=== PATIENT | female | born 1960 | race Caucasian/White ===

== ENCOUNTER 2017-03-16 13:27 | Inpatient (IN) | payer OTHER ==
[~2017-03-16] VITALS: Ht 160 cm; Wt 81.6 kg
[2017-03-16 13:45] VITALS: BP_SYST 105
[2017-03-16] MEDS ORDERED: ONDANSETRON 4 MG ODT TAB PO ONE (15:30)
[2017-03-16 15:38] LABS: BASOPHILS # (AUTO) 0.1 K/uL (0.0-0.2); BASOPHILS % (AUTO) 0.6 % (0.0-2.0); HEMOGLOBIN 13.1 g/dL (12.0-16.0); LYMPHOCYTES # (AUTO) 0.4 K/uL (1.0-5.5); LYMPHOCYTES % (AUTO) 2.4 % (20.5-51.5); MEAN CORPUSCULAR HEMOGLOBIN 30 pg (27-31); MEAN CORPUSCULAR HGB CONC 33 % (32-36); MEAN CORPUSCULAR VOLUME 90 fL (79.0-98.0); MONOCYTES # (AUTO) 0.2 K/uL (0.0-1.0); MONOCYTES % (AUTO) 1.1 % (1.7-9.3); NEUTROPHILS # (AUTO) 14.2 K/uL (1.8-7.7); NEUTROPHILS % (AUTO) 95.9 % (40.0-70.0); PLATELET COUNT (AUTO) 366 K/uL (130-430); RED BLOOD CELL COUNT(AUTO) 4.44 MIL/uL (4.2-6.2); RED CELL DISTRIBUTION WIDTH 13.2 % (9.0-15.0); WHITE BLOOD COUNT (AUTO) 14.9 K/uL (4.8-10.8)
[2017-03-16 15:55] LABS: BILIRUBIN,URINE NEGATIVE (NEGATIVE); BLOOD, URINE NEGATIVE (NEGATIVE); CLARITY/URINE HAZY (CLEAR); COLOR,URINE YELLOW (YELLOW); GLUCOSE,URINE NEGATIVE (NEGATIVE); KETONES,URINE TRACE (NEGATIVE); LEUKOCYTE ESTERASE ,URINE TRACE (NEGATIVE); NITRITE, URINE NEGATIVE (NEGATIVE); PH,URINE 6.5 (5.0-8.0); PROTEIN URINE TRACE (NEGATIVE); UROBILINOGEN,URINE 0.2 (0.2-1.0)
[2017-03-16 15:59] LABS: CALCIUM 8.9 mg/dL (8.4-11.0); CREATININE 1.38 mg/dL (0.55-1.30)
[2017-03-16 16:04] LABS: ALBUMIN 3.9 g/dL (3.4-4.8); TOTAL BILIRUBIN 0.6 mg/dL (0.0-1.0); TOTAL PROTEIN, SERUM 8.6 g/dL (6.4-8.3)
[2017-03-16 16:09] LABS: POTASSIUM 2.4 mmol/L (3.5-5.1)
[2017-03-16] MEDS ORDERED: NACL 0.9% 1,000 ML IV ONE (16:15)
[2017-03-16] MEDS ORDERED: KCL 40 mEq in 100 mL (PREMIX) 100 ML IV ONE (16:15)
[2017-03-16] MEDS ORDERED: POTASSIUM CHLORIDE 20 MEQ TAB.PRT.SR PO ONE (16:15)
[2017-03-16 16:26] LABS: BACTERIA,URINE MODERATE /HPF (None Seen); RBC,URINE 0-3 /HPF (0-3)
[2017-03-16 16:27] LABS: MUCUS,URINE None Seen /LPF (None Seen)
[2017-03-16] MEDS ORDERED: MORPHINE SULFATE 10 MG/ML VIAL IVP ONE (16:30)
[2017-03-16] MEDS ORDERED: KCL 20 mEq in 100 mL (PREMIX) 100 ML IV ONE (16:30)
[2017-03-16] MEDS ORDERED: BUTA1CAP43 PO (17:45)
[2017-03-16] MEDS ORDERED: TOPI50TA PO (17:45)
[2017-03-16] MEDS ORDERED: LEVO175T2 PO (17:45)
[2017-03-16] MEDS ORDERED: TEMA15CA51 PO (17:45)
[2017-03-16] MEDS ORDERED: VENL37.55 PO (17:45)
[2017-03-16] MEDS ORDERED: ASA81 PO (17:45)
[2017-03-16] MEDS ORDERED: HYDR-2489 PO (17:45)
[2017-03-16] MEDS ORDERED: LISI40TA4 PO (17:45)
[2017-03-16] MEDS ORDERED: LORA-259 PO (17:45)
[2017-03-16 18:28] VITALS: BP_SYST 99
[2017-03-16 19:00] VITALS: BP_SYST 115
[2017-03-16] MEDS: D5NS 1,000 ML IV SCH (19:00)
[2017-03-16] MEDS ORDERED: ONDANSETRON HCL 4 MG/2 ML VIAL IVP PRN (19:00)
[2017-03-16] MEDS ORDERED: MORPHINE 4 MG/ML INJ. SYRINGE IVP PRN (19:00)
[2017-03-16] MEDS ORDERED: ACETAMINOPHEN 325 MG TABLET PO PRN (19:00)
[2017-03-16 20:00] VITALS: BP_SYST 115
[2017-03-16] MEDS ORDERED: PIPERACILLIN/TAZO 3.375/DEX-IS 50 ML IV ONE (20:00)
[2017-03-16] MEDS: TEMAZEPAM 15 MG CAPSULE PO SCH (21:53)
[2017-03-16] MEDS: MORPHINE 2 MG/ML INJ. SYRINGE IVP PRN (22:06)
[2017-03-16 23:45] VITALS: BP_SYST 92
[2017-03-17] MEDS: PIPERACILLIN/TAZO 3.375/DEX-IS 50 ML IV SCH ×4 (02:24→21:32)
[2017-03-17] MEDS: D5NS 1,000 ML IV SCH ×2 (02:25→18:13)
[2017-03-17 04:00] VITALS: BP_SYST 88
[2017-03-17] MEDS: LEVOTHYROXINE SODIUM 0.125 MG TABLET PO SCH (06:17)
[2017-03-17 08:25] VITALS: BP_SYST 88
[2017-03-17] MEDS: TOPIRAMATE 100 MG TABLET(Topamax) PO SCH (09:03)
[2017-03-17] MEDS: MORPHINE 2 MG/ML INJ. SYRINGE IVP PRN (09:07)
[2017-03-17 09:10] VITALS: BP_SYST 94
[2017-03-17] MEDS: LORazepam 1 MG TABLET PO SCH (10:26)
[2017-03-17 11:10] LABS: BASOPHILS % (AUTO) 0.3 % (0.0-2.0); EOSINOPHILS # (AUTO) 0.1 K/uL (0.0-0.4); EOSINOPHILS % (AUTO) 1.2 % (0.0-4.0); HEMATOCRIT 31.1 % (36-48); HEMOGLOBIN 10.3 g/dL (12.0-16.0); LYMPHOCYTES # (AUTO) 0.7 K/uL (1.0-5.5); LYMPHOCYTES % (AUTO) 12.1 % (20.5-51.5); MEAN CORPUSCULAR HEMOGLOBIN 30 pg (27-31); MEAN CORPUSCULAR HGB CONC 33 % (32-36); MEAN CORPUSCULAR VOLUME 90 fL (79.0-98.0); MONOCYTES # (AUTO) 0.4 K/uL (0.0-1.0); MONOCYTES % (AUTO) 6.8 % (1.7-9.3); NEUTROPHILS # (AUTO) 4.5 K/uL (1.8-7.7); NEUTROPHILS % (AUTO) 79.6 % (40.0-70.0); PLATELET COUNT (AUTO) 241 K/uL (130-430); RED BLOOD CELL COUNT(AUTO) 3.46 MIL/uL (4.2-6.2); RED CELL DISTRIBUTION WIDTH 12.8 % (9.0-15.0); WHITE BLOOD COUNT (AUTO) 5.7 K/uL (4.8-10.8)
[2017-03-17 11:28] LABS: CALCIUM 8.1 mg/dL (8.4-11.0); CREATININE 1.11 mg/dL (0.55-1.30)
[2017-03-17 11:33] LABS: ALBUMIN 2.8 g/dL (3.4-4.8); TOTAL BILIRUBIN 0.4 mg/dL (0.0-1.0); TOTAL PROTEIN, SERUM 6.6 g/dL (6.4-8.3)
[2017-03-17 13:00] VITALS: BP_SYST 89
[2017-03-17 18:20] VITALS: BP_SYST 89
[2017-03-17 20:15] VITALS: BP_SYST 87
[2017-03-17] MEDS ORDERED: ZIPRASIDONE HCL 20 MG CAPSULE (GEODON) PO SCH (21:00)
[2017-03-17] MEDS: TEMAZEPAM 15 MG CAPSULE PO SCH (21:00)
[2017-03-18] MEDS: D5NS 1,000 ML IV SCH (01:00)
[2017-03-18 01:08] VITALS: BP_SYST 88
[2017-03-18 02:23] VITALS: BP_SYST 90
[2017-03-18] MEDS: MORPHINE 2 MG/ML INJ. SYRINGE IVP PRN (02:35)
[2017-03-18] MEDS: PIPERACILLIN/TAZO 3.375/DEX-IS 50 ML IV SCH (02:43)
[2017-03-18] MEDS: LEVOTHYROXINE SODIUM 0.125 MG TABLET PO SCH (06:25)
[2017-03-18 08:00] VITALS: BP_SYST 104
[2017-03-18] MEDS: TOPIRAMATE 100 MG TABLET(Topamax) PO SCH (09:28)
[2017-03-18] MEDS: LORazepam 1 MG TABLET PO SCH (09:28)
[2017-03-18 09:31] LABS: CALCIUM 8.1 mg/dL (8.4-11.0); CREATININE 0.98 mg/dL (0.55-1.30); POTASSIUM 3.1 mmol/L (3.5-5.1)
[2017-03-18 09:36] LABS: ALBUMIN 2.6 g/dL (3.4-4.8); TOTAL BILIRUBIN 0.2 mg/dL (0.0-1.0); TOTAL PROTEIN, SERUM 6.2 g/dL (6.4-8.3)
[2017-03-18] MEDS ORDERED: ZIPRASIDONE HCL 20 MG CAPSULE (GEODON) PO ONE (11:15)
[2017-03-18] MEDS ORDERED: CIPR-211 PO (13:40)
[2017-03-18] MEDS ORDERED: METR500T PO (13:41)
[2017-03-18 13:43] VITALS: BP_SYST 108
== END 2017-03-18 13:53 | disposition home or self-care (01) | DRG 690 ==
LOC: SED 13:27 → SMU 17:52
PROVIDERS: ADMIT Internal Medicine Hospice and Palliative Medicine; ATTEND Internal Medicine Hospice and Palliative Medicine
DX: N12 Tubulo-interstitial nephritis, not specified as acute or chronic (principal); F31.9 Bipolar disorder, unspecified; I10 Essential (primary) hypertension; M54.9 Dorsalgia, unspecified; Z90.49 Acquired absence of other specified parts of digestive tract; Z79.1 Long term (current) use of non-steroidal anti-inflammatories (NSAID); Z85.850 Personal history of malignant neoplasm of thyroid; Z79.899 Other long term (current) drug therapy; Z79.82 Long term (current) use of aspirin
CPT/HCPCS: 36415; 74250-TC; 80053; 81000-TC; 83605; 83690-TC; 85025; 87040-TC; 87086; 96365; 96366; 96368; 96375; 99285; J1956; J2270; J2543; J3480; J7030; J7042; Q0162